=== PATIENT | female | born 1990 | race Caucasian/White ===

== ENCOUNTER 2019-01-02 10:25 | Inpatient (IN) | payer MEDICAID ==
[~2019-01-02] VITALS: Ht 172.7 cm; Wt 151.4 kg
[~2019-01-02 10:25] MED LIST: IRON325 M1 PO; NORTREL 35 MCG-1 TA1 PO
[2019-02-12] VITALS (44 sets, daily range): BP systolic 86–183; BP diastolic 52–102; PULSE 74–144; TEMP 98.1–98.8
--- NOTE | 2019-02-12 07:10 | NUR ---
Pt arrives on unit ambulatory with FOB for induction of labor. Changed into clean gown. EFM and toco applied. VSS. Denies vaginal bleeding, LOF, regular ctx and reports GFM. IV started in LH. Labs drawn. LR infusing. Pt tolerated well. Admission assessment completed. Consents signed. Pt updated on POC. Safety reviewed. Oriented to room. Bed locked in low position. Call light within reach. No questions or concerns at this time.
[2019-02-12] MEDS ORDERED: PRENATAL MVI (07:24)
[2019-02-12 07:50] LABS: HEMOGLOBIN 11.4 g/dl (12.5-16.0); MEAN CELL VOLUME 91 fl (80.0-100.0); MEAN CORPUSCULAR HEMOGLOBIN 30 pg (27.0-31.0); MEAN CORPUSCULAR HGB CONC 33 g/dl (33.0-37.0); MEAN PLATELET VOLUME 9.2 fl (7.4-10.4); PLATELET COUNT 294 K/mm3 (130-400); RED BLOOD COUNT 3.76 M/mm3 (4.10-5.30)
[2019-02-12 07:52] LABS: HEMATOCRIT 34.2 % (37.0-47.0)
[2019-02-12 08:30] LABS: EOSINOPHIL 1 % (0-4); LYMPHOCYTE 20 % (20.0-51.0); NEUTROPHILS 72 % (42.0-75.2); PLATELET ESTIMATE NORMAL (NORMAL)
--- NOTE | 2019-02-12 16:00 | NUR ---
Dr. Maza on unit. SVE per provider C/+1. Orders to begin pushing. 1713- of viable female attended by Dr. Maza. Cord clamp x2 and cut from umbilicus. Infant dried and placed on mother's abdomen. Apgars 8/9. Care of infant to Kalyn Montano RN. 1716- of placenta. Pitocin bolus infusing per protocol. Fundus firm at umbilicus. Bleeding WNL. Second degree laceration performed by Dr. Maza. Pericare performed. Ice pack applied. Pt updated on POC. Safety reviewed. Bed locked in low position. Call light within reach. No questions or concerns at this time.
--- NOTE | 2019-02-12 20:00 | NUR ---
Pt able to lift and hold both legs off of bed for 5 seconds. Pt repositioned to sitting on edge of bed. Epidural catheter removed. Tip smooth, blue, and intact. Bandaid applied to site, pt tolerated procedure well. Pt able to ambulate to bathroom with standby assistance. Pt unable to void at this time. Pericare explained and provided. Pt educated on need of 3 measurable voids. Clean gown on. Mesh panties and pad on. Pt ambulated to room 207 independently with belongings.
[2019-02-13 00:55] VITALS: BP 112/70; PULSE 108; TEMP 98.4
--- NOTE | 2019-02-13 06:15 | NUR ---
Rests in bed, alert. States has just fed baby.
--- NOTE | 2019-02-13 07:30 | NUR ---
Rests in bed, alert. Ibuprofen 600 mg given per request and as ordered.
[2019-02-13] MEDS ORDERED: IBU600 MG PO (08:29)
[2019-02-13 08:30] VITALS: BP 124/75; PULSE 99; TEMP 98.4
--- NOTE | 2019-02-13 09:22 | NUR ---
Initial visit attempt; Physician with patient, [employer] left card of congratulations for the of her daughter and information regarding the availability of [facility].
--- NOTE | 2019-02-13 10:30 | NUR ---
Ambulates in the [address] with family. Denies any needs at this time.
[2019-02-13 12:00] VITALS: BP 142/91; PULSE 91; TEMP 98.6
[2019-02-13 16:00] VITALS: BP 140/83; PULSE 100; TEMP 98.7
[2019-02-13 20:50] VITALS: BP 119/57; PULSE 100; TEMP 98.4
--- NOTE | 2019-02-14 08:00 | NUR ---
Rests in bed, alert. Holding baby. Vital signs done. 0830 Ibuprofen 600 mg given per request an as ordered.
[2019-02-14 08:15] VITALS: BP 111/59; PULSE 99; TEMP 98.8
--- NOTE | 2019-02-14 14:00 | NUR ---
Discharge instructions given, verbalizes understanding.
== END 2019-02-14 14:00 | disposition home or self-care (01) | DRG 807 ==
LOC: LDR 02-12 06:29 → OB 02-12 07:00 → LDR 02-12 07:00 → OB 02-12 20:30 → LDR 02-13 10:22 → OB 02-14 14:00
PROVIDERS: ADMIT Obstetrics & Gynecology
PROC: 10E0XZZ Delivery of Products of Conception, External Approach (ICD-10-PCS; principal; 2019-02-12)
PROC: 0KQM0ZZ Repair Perineum Muscle, Open Approach (ICD-10-PCS; 2019-02-12)
PROC: 3E033VJ Introduction of Other Hormone into Peripheral Vein, Percutaneous Approach (ICD-10-PCS; 2019-02-12)
PROC: 10H07YZ Insertion of Other Device into Products of Conception, Via Natural or Artificial Opening (ICD-10-PCS; 2019-02-12)
PROC: 10H073Z Insertion of Monitoring Electrode into Products of Conception, Via Natural or Artificial Opening (ICD-10-PCS; 2019-02-12)
DX: O99.214 Obesity complicating childbirth (principal); Z37.0 Single live birth; O99.02 Anemia complicating childbirth; D64.9 Anemia, unspecified; E66.01 Morbid (severe) obesity due to excess calories; O70.1 Second degree perineal laceration during delivery; Z3A.39 39 weeks gestation of pregnancy; O76 Abnormality in fetal heart rate and rhythm complicating labor and delivery
CPT/HCPCS: J2590; J2795; J7120